=== PATIENT | female | born 1965 | race Caucasian/White ===

== ENCOUNTER → 2022-05-06 | Outpatient (CLI) | payer BC, SELFPAY ==
--- NOTE | 2022-05-06 16:36 | MRI_ITS ---
STUDY: MRI SOFT TISSUE NECK WITH AND WITHOUT CONTRAST REASON FOR EXAM: Female, 57 years old. FACIAL MASS -- CHEEK BLOOD POCKET IN R CHEEK HEMANGIOMA VS AVM TECHNIQUE: Standarized fat and water weighted pulse sequences were obtained in all 3 orthogonal plane pre and post administration of IV 19cc clariscan. COMPARISON: None. FINDINGS: There is a 1.41 x 1.50 cm smoothly circumscribed ovoid mass overlying the surface of the right masseter muscle deep in the subcutaneous fat that has a similar signal intensity and morphology to the parotid gland and is also connected to the parotid gland by a septum as seen on image 12/30 series 600 to represent an ectopic focus of parotid tissue or an assess reason parotid gland. Otherwise there is no demonstrated abnormal tangle of vessels or signal that would indicate a hemangioma or AVM. There are a few small simple parenchymal cyst and both parotid glands of no clinical significance. The parotid glands are otherwise normal. There is no edema in the subcutaneous tissues or muscles or glands of the face or neck. There is a small 0.94 x 0.54 cm oval intensely enhancing smooth nodule (see image 15/30 series 9) deep to the subcutaneous tissues at the anterior angle of the mandible on the right directly abutting the dental structures that appears to represent a periodontal cyst or granuloma or similar entity. I see no evidence of osteomyelitis or abscess. Normal bilateral bottom finisher spaces. Normal bilateral parapharyngeal spaces. Normal bilateral carotid spaces. Normal bilateral sublingual and submandibular glands and spaces. Normal visualized nasopharynx. Normal retropharyngeal space. Normal perivertebral space. Normal visualized bilateral faucial tonsils. The visualized tongue, tongue base and oropharynx are normal. The visualized cervical lymph nodes (levels I-) are within normal size limits, and maintain normal morphology. There is no demonstrated solid or cystic mass lesion. There is no abnormal contrast enhancement. Normal epiglottis, bilateral vallecula and hypopharynx. The pre-epiglottic and paraglottic adipose spaces are normal. Normal visualized bilateral piriform sinuses and aryepiglottic folds. Normal subglottic trachea. There is mucosal inflammatory disease of the paranasal sinuses consistent with chronic sinusitis. Mild degenerative changes are seen in the cervical spine. MRI/Orbit Face Neck W/WO Contrast IMPRESSION: 1. There is a 1.41 x 1.50 cm smoothly circumscribed ovoid mass overlying the surface of the right masseter muscle deep in the subcutaneous fat that has a similar signal intensity and morphology to the parotid gland and is also connected to the parotid gland by a septum as seen on image 12/30 series 600 to represent an ectopic focus of parotid tissue or an assess reason parotid gland. 2. Otherwise there is no demonstrated abnormal tangle of vessels or signal that would indicate a hemangioma or AVM. There are a few small simple parenchymal cyst and both parotid glands of no clinical significance. The parotid glands are otherwise normal. There is no edema in the subcutaneous tissues or muscles or glands of the face or neck. 3. There is a small 0.94 x 0.54 cm oval intensely enhancing smooth nodule (see image 15/30 series 9) deep to the subcutaneous tissues at the anterior angle of the mandible on the right directly abutting the dental structures that appears to represent a periodontal cyst or granuloma or similar entity. I see no evidence of osteomyelitis or abscess. Electronically Signed: Steven Rodriguez MD at 15:14 EST ,
== END | disposition home or self-care (01) ==
LOC: MRI 16:18
PROVIDERS: PCP Internal Medicine; Visit Provider Otolaryngology
DX: Q27.39 Arteriovenous malformation, other site (principal)
CPT/HCPCS: 70543; A9575